=== PATIENT | male | born 1955 | race Caucasian/White ===

== ENCOUNTER → 2020-06-09 10:18 | Outpatient (CLI) | payer BC, SELFPAY ==
--- NOTE | 2020-06-09 10:27 | DI.CT.S_ITS ---
PROCEDURE: CT HEAD/BRAIN WO CON INDICATIONS: Fall on and from ladder, initial encounter TECHNIQUE: Noncontrast 4.5 mm thick angled axial sections acquired from the foramen magnum to the vertex, with coronal and sagittal reformats. For radiation dose reduction, the following was used: automated exposure control, adjustment of mA and/or kV according to patient size. COMPARISON: None. FINDINGS: Image quality: Excellent. CSF spaces: Basal cisterns are patent. No extra-axial fluid collections. Ventricles are normal in size and shape. Brain: No midline shift. No intracranial masses or hemorrhage. Pang-white matter interface is normal. Skull and face: Calvarium and visualized facial bones are intact, without suspicious lesions. Sinuses: Visualized sinuses and mastoids are clear. IMPRESSION: Normal for age, source of current pain after trauma symptoms is not seen. Dictated by: Murtaza Ledesma M.D. on 06/09/2020 at 11:38 Approved by: Murtaza Ledesma M.D. on 06/09/2020 at 11:39
== END ==
PROVIDERS: Referring Provider Psychiatry & Neurology Neurology; Visit Provider Psychiatry & Neurology Neurology
DX: S06.4X9A Epidural hemorrhage with loss of consciousness of unspecified duration, initial encounter (principal); W11.XXXA Fall on and from ladder, initial encounter
CPT/HCPCS: 70450

== ENCOUNTER → 2020-06-21 14:42 | Outpatient (ROUT) | payer BC, SELFPAY ==
[2020-06-21 14:52] LABS: Hematocrit 39.5 % (41-53); Mean Corpuscular HGB Conc 32.8 % (30-36); Mean Corpuscular Hemoglobin 30.4 PG (26-34); Mean Corpuscular Volume 92.7 fL (80-100); Platelet Count 304 X10^3/uL (150-400); Red Blood Cell Count 4.26 X10^6/uL (4.5-5.9); Red Cell Distribution Width 13.4 % (11.6-14.8); White Blood Cell Count 4.7 X10^3/uL (4.5-11.0)
[2020-06-21 15:41] LABS: Alanine Aminotransferase 27 IU/L (<50); Albumin 3.6 g/dL (3.5-5.0); Albumin Globulin Ratio 1.2 (1.0-2.8); Alkaline Phosphatase 129 U/L (38-126); Aspartate Aminotransferase 26 IU/L (17-59); BUN Creatinine Ratio 16.7 (6-22); Bilirubin Total 0.5 mg/dL (0.2-1.3); Blood Urea Nitrogen 14 mg/dL (9-20); Calcium 9.2 mg/dL (8.4-10.2); Carbon Dioxide 30 mmol/L (22-32); Chloride 106 mmol/L (98-107); Cholesterol 217 mg/dL (140-199); Estimated Glomerular Filt Rate > 60.0 mL/min (>60); Globulin 3.1 g/dL (1.7-4.1); Glucose 103 mg/dL (80-110); HDL Cholesterol 33 mg/dL (40-60); HEMOLYSIS < 15 (0-50); LDL Cholesterol Calculated 150 mg/dL (<100); Potassium 4.4 mmol/L (3.4-5.1); Sodium 140 mmol/L (137-145); Total Protein 6.7 g/dL (6.3-8.2); Triglycerides 170 mg/dL (35-150)
== END ==
PROVIDERS: Visit Provider Student in an Organized Health Care Education/Training Program
DX: E78.00 Pure hypercholesterolemia, unspecified (principal)
CPT/HCPCS: 80053; 80061; 85027

== ENCOUNTER → 2020-07-19 14:28 | Outpatient (CLI) | payer BC, SELFPAY ==
--- NOTE | 2020-07-19 | DI.US.S_ITS ---
PROCEDURE: US PERIPH VENOUS LOW EXTREM BI INDICATIONS: CHEST PAIN - RULE OUT DEEP VEIN THROMBOSIS TECHNIQUE: Real-time imaging, as well as color and pulse Doppler interrogation, were performed of the deep veins of both legs from the inguinal ligament to the popliteal fossa. COMPARISON: None. FINDINGS: Right: The common femoral, femoral and popliteal veins are normally compressible, and free of intraluminal thrombus. Color and pulse Doppler demonstrate normal phasic intravascular flow. There is normal augmentation response to distal compression maneuver. Left: The common femoral, femoral and popliteal veins are normally compressible, and free of intraluminal thrombus. Color and pulse Doppler demonstrate normal phasic intravascular flow. There is normal augmentation response to distal compression maneuver. IMPRESSION: No deep venous thrombosis identified within either the left or right lower extremities. Dictated by: Devan Ybarra Myrtle Interpreted: Kade Real MD on 07/19/2020 at 15:49 Approved by: Kade Real M.D. on 07/19/2020 at 17:00
[2020-07-19 14:57] LABS: BUN Creatinine Ratio 22.4 (6-22); Blood Urea Nitrogen 19 mg/dL (9-20); Estimated Glomerular Filt Rate > 60.0 mL/min (>60)
--- NOTE | 2020-07-19 15:52 | DI.CT.S_ITS ---
PROCEDURE: CT ANGIO CHEST INDICATIONS: chest pain R/O DVT TECHNIQUE: After the administration of intravenous contrast, 2 mm thick sections acquired from the pulmonary apices to the posterior costophrenic angles. 3-dimensional maximum intensity projection (MIP) coronal and sagittal reformats were then acquired through the thorax. For radiation dose reduction, the following was used: automated exposure control, adjustment of mA and/or kV according to patient size. COMPARISON: None. FINDINGS: Image quality: Excellent. Pulmonary arteries: Pulmonary arteries are normal in size, and demonstrate no intraluminal filling defects to suggest central pulmonary embolism. Lungs and pleura: Minimal pleural-based nodularity in the extreme right lung base laterally on image 214/5 is likely atelectasis or inflammatory in nature. No suspicious pulmonary nodules. No pleural effusions or pneumothorax. Central and peripheral airways are patent. Mediastinum: Heart size is normal, without pericardial effusion. Symmetric appearing shotty bilateral hilar and mediastinal lymph nodes. No abnormal lymph nodes by size criteria. Thoracic aorta is normal in caliber and enhancement. Esophagus is normal in caliber, with small hiatal hernia. Bones and chest wall: No suspicious bony lesions. Ribs and thoracic spine appear intact throughout. Thyroid gland is unremarkable. No axillary or supraclavicular adenopathy. Abdomen: Visualized upper abdominal solid organs appear normal in the early arterial phase of enhancement. IMPRESSION: 1. No evidence acute pulmonary emboli. 2. Minimal nodularity in the extreme right lung base. This is likely inflammatory or representing minimal atelectasis. 3. No abnormally sized lymph nodes. The mediastinal and hilar adenopathy is likely reactive. However, based on their symmetric appearance, it may potentially represent subtle findings related to sarcoidosis. 4. Small hiatal hernia. Wall Dictated by: Richard Mcgee M.D. on 07/19/2020 at 15:59 Approved by: Richard Mcgee M.D. on 07/19/2020 at 16:04
== END ==
PROVIDERS: Referring Provider Internal Medicine; Visit Provider Internal Medicine
DX: R07.1 Chest pain on breathing (principal); K44.9 Diaphragmatic hernia without obstruction or gangrene
CPT/HCPCS: 36415; 71275; 82565; 84520; 93970; Q9967

== ENCOUNTER → 2020-09-05 15:03 | Outpatient (CLI) | payer BC, SELFPAY ==
--- NOTE | 2020-09-05 15:03 | DI.CT.S_ITS ---
PROCEDURE: CT UE RT WO CON INDICATIONS: Other fractures of lower end of unspecified radius TECHNIQUE: Noncontrast 1 mm axial sections acquired through the carpal bones, with coronal and sagittal reformats. COMPARISON: [facility], CR, XR WRIST 3+ VIEWS RIGHT, 08/29/2020, 16:04. FINDINGS: Image quality: Diagnostic. Beam hardening artifacts from distal radial fixation hardware is seen. Bones: As seen on previous radiograph, there is internal fixation of distal radial shaft with comminuted intra-articular fracture of distal radius. There is partial bony union throughout distal radial fracture sites. Persistent up to 1 millimeter diastasis involving in posterior distal radius is seen with corticated margin is seen. There is up to 2.4 millimeter diastasis involving distal radial cortex adjacent to radiocarpal joint space. Widening of scapholunate interval is seen measures up to 4 millimeters in distance. No other fracture or dislocation is seen. Osteoarthritic changes are noted along radial aspect of right wrist. No CT evidence of hardware loosening or failure. No suspicious intraosseous lesion. Soft tissues: There is no gross forearm or wrist soft tissue abnormality. No significant joint effusion. No full-thickness muscle or tendon rupture. No abnormal soft tissue calcifications. IMPRESSION: 1. Prior internal fixation of distal radius with anatomic wrist alignment. Comminuted intra-articular fracture of distal radius is seen with partial bony union at fracture sites and up to 2.4 mm diastasis involving distal radial cortex adjacent to radiocarpal joint and up to 1 millimeter diastasis in posterior cortex of distal radius. No new fracture or dislocation is seen. No CT evidence of hardware loosening or failure. 2. No gross wrist soft tissue abnormality. 3. Widening of scapholunate interval suggestive of scapholunate ligament tear. Dictated by: Crescencio Beaver M.D. on 09/05/2020 at 16:58 Approved by: Crescencio Beaver M.D. on 09/05/2020 at 17:05
== END ==
PROVIDERS: PCP Orthopaedic Surgery; Referring Provider Orthopaedic Surgery; Visit Provider Orthopaedic Surgery
DX: S52.571G Other intraarticular fracture of lower end of right radius, subsequent encounter for closed fracture with delayed healing (principal); X58.XXXD Exposure to other specified factors, subsequent encounter
CPT/HCPCS: 73200

== ENCOUNTER → 2020-09-14 13:30 | Outpatient (CLI) | payer BC, SELFPAY ==
[2020-09-14 15:54] LABS: Carbon Dioxide 27 mmol/L (22-32); Chloride 103 mmol/L (98-107); HEMOLYSIS < 15 (0-50); Potassium 4.6 mmol/L (3.4-5.1); Sodium 137 mmol/L (137-145)
== END ==
PROVIDERS: PCP Orthopaedic Surgery; Referring Provider Student in an Organized Health Care Education/Training Program; Visit Provider Student in an Organized Health Care Education/Training Program
DX: G47.62 Sleep related leg cramps (principal)
CPT/HCPCS: 36415; 80051

== ENCOUNTER → 2020-09-19 12:01 | Outpatient (CLI) | payer BC, SELFPAY ==
--- NOTE | 2020-09-19 12:03 | DI.US.S_ITS ---
PROCEDURE: US PERIPH VENOUS LOW EXTREM LT INDICATIONS: Other specified soft tissue disorders TECHNIQUE: Real-time imaging, as well as color and pulse Doppler interrogation, were performed of the lower extremity deep veins from the inguinal ligament to the popliteal fossa. COMPARISON: None. FINDINGS: Distal deep venous thrombosis can be seen involving the distal popliteal vein and into the tibioperoneal trunk. The thrombus extends through the entire calf. The peroneal vein is patent at the level of the ankle. The posterior tibial veins are also patent. No proximal deep venous thrombosis can be seen. There is a nonvascular superficial mass seen involving the posterior fossa and the calf that measures 3.6 x 0.6 x 2.1 cm. IMPRESSION: Distal deep venous thrombosis is seen involving the distal popliteal vein and the tibioperoneal trunk. No proximal deep venous thrombosis can be seen. There is also an apparent soft tissue lipoma seen. Note: Findings relayed to Estelle Pillai PA-C via office staff, [place], at 12:15 p.m. [place] time on September 19, 2020. Dictated by: Rigo Bautista M.D. on 09/19/2020 at 12:10 Approved by: Rigo Bautista M.D. on 09/19/2020 at 12:17
== END ==
PROVIDERS: PCP Student in an Organized Health Care Education/Training Program; Referring Provider Student in an Organized Health Care Education/Training Program; Visit Provider Student in an Organized Health Care Education/Training Program
DX: I82.432 Acute embolism and thrombosis of left popliteal vein (principal); I82.442 Acute embolism and thrombosis of left tibial vein; I82.452 Acute embolism and thrombosis of left peroneal vein; M79.89 Other specified soft tissue disorders
CPT/HCPCS: 93971

== ENCOUNTER 2021-01-26 16:35 | Emergency (ER) | payer BC, SELFPAY ==
[2021-01-26 16:43] VITALS: BP 120/83; PULSE 78; RESP 18; TEMP 36.2; O2SAT 99; BMI 27.7
--- NOTE | 2021-01-26 19:30 | DI.US.S_ITS ---
PROCEDURE: US [facility] VENOUS LOW EXTREM LT INDICATIONS: RE-EVALUATE DVT TECHNIQUE: Real-time imaging, as well as color and pulse Doppler interrogation, were performed of the lower extremity deep veins from the inguinal ligament to the popliteal fossa. COMPARISON: [facility], , [facility] VENOUS LOW EXTREM LT, 09/19/2020, 11:19. FINDINGS: The common femoral, and femoral veins are normally compressible, and free of intraluminal thrombus. Color and pulse Doppler demonstrate normal phasic intraluminal flow. There is normal augmentation response to distal compression maneuver. At the tibioperoneal trunk, there is expansile and occlusive thrombus. This segment of vein is incompressible. There is no flow in the peroneal vein more distally. Proximal portion of the thrombus extends into the distal most aspect of the popliteal vein. IMPRESSION: 1. No significant change in the extent of the thrombosed calf vein. The proximal most extent is the distal popliteal vein, stable compared to the prior study. Dictated by: Seema Suarez M.D. on 01/26/2021 at 21:13 Approved by: Seema Suarez M.D. on 01/26/2021 at 21:17
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
[2021-01-26 20:31] VITALS: BP 130/84; PULSE 74; O2SAT 98
== END 2021-01-26 20:32 | disposition home or self-care (01) ==
PROVIDERS: Emergency Provider Nurse Practitioner Critical Care Medicine; PCP Student in an Organized Health Care Education/Training Program
DX: I82.532 Chronic embolism and thrombosis of left popliteal vein (principal)
CPT/HCPCS: 93971; 99283

== ENCOUNTER → 2021-02-17 13:50 | Outpatient (CLI) | payer BC, SELFPAY ==
--- NOTE | 2021-02-17 | DI.CT.S_ITS ---
PROCEDURE: CT UE RT WO CON INDICATIONS: Fracture of unspecified carpal bone, right wrist, initial en TECHNIQUE: Noncontrast 1 mm axial sections acquired through the carpal bones, with coronal and sagittal reformats. COMPARISON: [facility], CT, CT UE RT WO CON, 09/05/2020, 15:08. FINDINGS: Image quality: Excellent. Bones: Patient is status post prior ORIF of distal radius with significant beam hardening artifacts from surgical hardware. No gross hardware loosening or failure is seen. Compared to previous study, there is interval healing at patient's known comminuted intra-articular distal radial radial fracture sites with near complete bony union. No new fracture or dislocation is seen. No evidence of nonunion. Slight widening of scapholunate interval is noted concerning for scapholunate ligament injury. No suspicious intraosseous lesion is seen. Osteoarthritic changes throughout wrist joints are noted more prominent at radiocarpal joint and scaphoid trapezial joint. Soft tissues: There is no gross wrist soft tissue abnormality. No full-thickness extensor or flexor tendon rupture. No significant joint effusion or intra-articular loose body. No abnormal soft tissue calcification is seen. IMPRESSION: 1. Nearly healed comminuted distal radial intra-articular fracture as above. No new fracture or dislocation. No evidence of hardware loosening or failure. No suspicious bony lesion. Osteoarthritic changes are noted in wrist joints. 2. Widened scapholunate interval concerning for injury to scapholunate ligament. No full-thickness wrist tendon rupture. No abnormal soft tissue calcifications. No significant joint effusion. Dictated by: Crescencio Beaver M.D. on 02/17/2021 at 14:19 Approved by: Crescencio Beaver M.D. on 02/17/2021 at 14:34
== END ==
PROVIDERS: PCP Student in an Organized Health Care Education/Training Program; Referring Provider Orthopaedic Surgery; Visit Provider Orthopaedic Surgery
DX: S52.571D Other intraarticular fracture of lower end of right radius, subsequent encounter for closed fracture with routine healing (principal); X58.XXXD Exposure to other specified factors, subsequent encounter
CPT/HCPCS: 73200

== ENCOUNTER → 2021-07-12 08:27 | Outpatient (CLI) | payer BC, SELFPAY ==
--- NOTE | 2021-07-12 | DI.RAD.S_ITS ---
PROCEDURE: [place] WRIST INJECTION MR/CT RT INDICATIONS: SCAPHOLUNATE JOINT DIASTASIS COMPARISON: [facility] [place], CR, XR WRIST 3+ VIEWS RIGHT, 07/03/2021, 14:18. [facility], , MR WRIST RT W CON, 07/12/2021, 8:39. TECHNIQUE: After informed consent had been obtained, the wrist was examined fluoroscopically, and a site chosen for injection of the radiocarpal compartment from a dorsal approach. Skin was prepped and draped in a sterile fashion and 1% lidocaine infiltrated from the skin down to the articular surface. A hypodermic needle was then introduced into the articular space and a modest amount of contrast medium was instilled confirming intra-articular needle tip placement. This was followed by approximately 4 mL of a dilute gadolinium solution. Needle was removed and dressing was applied. The patient experienced no complications throughout the procedure and left the fluoroscopic suite in no apparent distress. FINDINGS: A single fluoroscopic spot image demonstrates injected iodinated contrast around the joint space and the lateral tendon sheaths. Please note, it is unclear whether there was successful intra-articular injection on fluoroscopic view. Follow-up MRI will be performed immediately following this exam. IMPRESSION: Successful fluoroscopic-guided administration of dilute Gadolinium solution for wrist MR arthrogram. Dictated by: Abeba Duncan M.D. on 07/12/2021 at 9:36 Approved by: Abeba Duncan M.D. on 07/12/2021 at 9:45
--- NOTE | 2021-07-12 | DI.MRI.S_ITS ---
PROCEDURE: MR WRIST RT W CON INDICATIONS: SCAPHOLUNATE JOINT DIASTASIS TECHNIQUE: After the administration of 3-4 mL of dilute intra-articular Gadolinium contrast into the radiocarpal compartment, coronal T1 spin echo with fat saturation and T2 fast spin echo with fat saturation, axial T1 spin echo and T2 fast spin echo with fat saturation, sagittal T1 spin echo with and without fat saturation through the wrist. COMPARISON: [facility], CT, CT UE RT WO CON, 09/05/2020, 15:08. [facility], CT, CT UE RT WO CON, 02/17/2021, 14:11. [facility], CR, XR WRIST 3+ VIEWS RIGHT, 07/03/2021, 14:18. [facility], RF, [place] WRIST INJECTION MR/CT RT, 07/12/2021, 8:59. FINDINGS: Image quality: Extra-articular injection of T1 contrast material is noted. Diagnostic information is still obtained. Bones and cartilage: Abnormal signal is seen in the distal radius related to the previously seen healed distal radial fracture with removed hardware and probable bone graft donor site. There continues to be a gap along the distal radial articular surface measuring up to 2 mm, as seen on sagittal images. Mild osseous edema is seen in the scaphoid with transverse linear fracture line at the scaphoid waist without displacement. No definite osseous bridging is seen. Additional fracture line is seen within the distal pole of the scaphoid extending to the scaphoid trapezial articular surface without displacement. No signs of scaphoid osteonecrosis. Mild osseous edema in the proximal scaphoid is most likely related to degenerative changes and cartilage loss at the radioscaphoid articulation. Osseous edema and cystic changes are seen within the lunate, consistent with severe degenerative changes at the radiolunate articulation with associated full-thickness cartilage loss. The ulnar head is noted to be abutting the proximal lunate with associated cystic changes and subchondral edema. Mild cystic changes are seen in the triquetrum. Full-thickness cartilage loss is seen in the 1st carpometacarpal joint and there is multifocal high-grade cartilage loss in the triscaphe joint. Small midcarpal and radiocarpal effusions are present. Carpal ligaments: Widening of the scapholunate interval is seen measuring up to 3 mm. There is complete tearing of the volar and likely the membranous portions of the scapholunate ligament. The dorsal scapholunate ligament fibers may remain in continuity. No triquetral ligament is grossly intact. On sagittal images, the pisohamate ligament appears intact. Triangular fibrocartilage complex: There is complete tearing of the central triangle fibrocartilage disc. The distal ulna abuts the lunate through the full-thickness defect. A small distal radioulnar joint effusion is present. Tendons and soft tissues: The carpal tunnel structures appear normal, including the median nerve. The ulnar nerve appears normal within Guyon's canal. There is partial tearing of the extensor carpi ulnaris tendon at the level of the ulnar groove as well as mild volar subluxation that is suggestive of an injury to the tendon subsheath. Surrounding fluid is seen within the tendon sheath, consistent with tenosynovitis. T1-hyperintense fluid is seen within the 2nd and 3rd extensor compartments, consistent with extravasation during the arthrogram injection. IMPRESSION: 1. Postsurgical changes from fracture fixation at the distal radius with subsequent hardware removal. The distal radial fracture appears healed. Bone graft donor site is also noted in the distal radius. 2. Subtle nondisplaced linear fracture lines in the waist of the scaphoid and in the proximal pole without definite osseous bridging. No signs of proximal pole osteonecrosis. 3. Complete tearing of the volar and membranous portions of the scapholunate ligament with widening of the scapholunate interval. Some of the dorsal ligamentous fibers may remain intact. 4. Complete tearing of the central triangle fibrocartilage disc. 5. Partial longitudinal tearing of the extensor carpi ulnaris tendon with associated tenosynovitis and mild volar subluxation, suggesting injury to the subsheath. 6. Severe radiocarpal degenerative changes. Moderate 1st carpometacarpal and triscaphe osteoarthrosis. Small joint effusions are seen throughout the wrist. Dictated by: Arpit Méndez M.D. on 07/12/2021 at 10:36 Approved by: Arpit Méndez M.D. on 07/12/2021 at 10:56
== END ==
PROVIDERS: PCP Student in an Organized Health Care Education/Training Program; Referring Provider Orthopaedic Surgery; Visit Provider Orthopaedic Surgery
DX: S63.094D Other dislocation of right wrist and hand, subsequent encounter (principal); S63.591A Other specified sprain of right wrist, initial encounter; S66.811A Strain of other specified muscles, fascia and tendons at wrist and hand level, right hand, initial encounter; M18.11 Unilateral primary osteoarthritis of first carpometacarpal joint, right hand; M19.031 Primary osteoarthritis, right wrist; M65.831 Other synovitis and tenosynovitis, right forearm
CPT/HCPCS: 20605; 73222; 77002

== ENCOUNTER → 2021-07-31 09:15 | Outpatient (CLI) | payer BC, SELFPAY ==
[2021-07-31 12:11] LABS: COVID19 -Nasal RAPID Negative (Negative)
== END ==
PROVIDERS: PCP Student in an Organized Health Care Education/Training Program; Visit Provider Surgery
DX: Z01.812 Encounter for preprocedural laboratory examination (principal); Z20.822 Contact with and (suspected) exposure to COVID-19
CPT/HCPCS: 87635

== ENCOUNTER 2021-08-01 07:57 | Day surgery (SDC) | payer BC, SELFPAY ==
[2021-08-01] VITALS (8 sets, daily range): BP systolic 89–118; BP diastolic 40–76; PULSE 65–85; RESP 12–18; TEMP 36.1–36.9; O2SAT 90–98; BMI 27.7
--- NOTE | 2021-08-01 08:42 | PM.HP.1 ---
History of Present Illness History of Present Illness Date Patient Seen: 08/01/21 Time Patient Seen: 08:43 Chief complaint: SDC Narrative: The patient presents for colorectal screening. He has a personal history of colonic polyps. Last colonoscopy was 3-5 years ago in significant for polyps. No personal or family history of colon cancer. On further history denies any recent gastrointestinal symptoms. No nausea, vomiting, abdominal pain, loss of appetite, unexplained weight loss, change in bowel habits, diarrhea, constipation, melena, hematochezia, or bright red blood per rectum. Patient History Medical History Acid reflux Hypercholesteremia Sleep apnea in adult Surgical History H/O wrist surgery History of right hip replacement Family & Social History Family History Father Heart disease Mother Pancreatic cancer Breast cancer Unknown Breast cancer Brother No problems noted. Tobacco & Substance use: Smoking Status Former smoker alcohol intake frequency holiday/special occasion Meds Home Medications and Allergies Home Medications Medication Instructions Recorded Confirmed Type acetaminophen 325 mg tablet 650 mg PO PRN PRN 11/07/20 07/31/21 History (Tylenol) apixaban 5 mg tablet (Eliquis) 5 mg PO BID #60 tab 11/07/20 07/31/21 Rx omeprazole 20 mg capsule,delayed 20 mg PO DAILY 08/01/21 08/01/21 History release Allergies Allergy/AdvReac Type Severity Reaction Status Date / Time No Known Drug Allergies Allergy Verified 08/01/21 08:33 Exam Narrative Exam Narrative: GENERAL: Adult male in no apparent distress HEENT: No scleral icterus CV: Regular rate, no peripheral edema LUNGS: No increased work of breathing. Patient speaks in full sentences without oxygen support. ABDOMEN: Soft, non-tender, non-distended NEURO: Nonfocal, normal strength throughout, normal gait. SKIN: Warm and dry Assessment & Plan Assessment & Plan narrative: The patient requires colorectal screening and colonoscopy is recommended. Technical details were discussed. Risks, benefits, alternatives explained. Risks including but not limited to myocardial infarction, aspiration, bleeding, pain, missed lesion, incomplete examination, need for further radiographic studies, colonic perforation, and need for major abdominal surgery were discussed. All questions were answered to their satisfaction, and they are in agreement with this plan. Time Spent With Patient Critical Care time: I spent a total of [] minutes of critical care time on this patient's care today; this time is exclusive of procedural time.
[2021-08-01] MEDS: fentaNYL 250 MCG/5 ML INJ IV (08:52)
[2021-08-01] MEDS: MIDAZOLAM 5 MG/5 ML VIAL 9 MG IV (08:52)
--- NOTE | 2021-08-01 09:21 | PM.OP.COLON ---
Operative Date/Time/Diagnoses Date of procedure: 08/01/21 Time of procedure: 09:21 Pre-op diagnosis: personal history of colonic polyps Post-op diagnosis: same Procedure & Clinicians Study performed: Colonoscopy Same procedure as scheduled: Yes Indications: Personal history colonic polyps Surgeon: Jeffrey Verduzco Procedure Notes Procedure in detail: Medications: Conscious sedation using 9mg IV midazolam and 250mcg IV of fentanyl The history and physical was performed/updated and the patient is ASA class is 2. The procedure was discussed in detail with the patient. Potential risks complications including infection, bleeding, missed diagnosis, perforation, need for surgery, and were explained. Their questions were answered and informed consent was obtained. Patient was brought to the procedure room and placed standard monitoring equipment. The patient's vital signs were monitored continuously throughout the entire procedure. Prior to starting time-out was performed. The patient was placed in the left lateral recumbent position. Procedural sedation was administered. Examination began with a thorough inspection of the perianal area there was no evidence of fissures, fistulae, external hemorrhoids or cutaneous malignancy. The colonoscopy scope was then placed into the anal canal and was advanced to the cecum, which was identified by the ileocecal valve, the appendiceal orifice and the confluence of the taenia. The scope was then slowly withdrawn examining colon thoroughly in all directions, irrigating it of any residual stool. FINDINGS 1. No masses or polyps. 2. Sigmoid diverticulosis 3. Internal hemorrhoids The patient tolerated the procedure well. They will be discharged once criteria are met. The prep was of good/excellent quality. The withdrawl time was 10 minutes. The sedation time was 28 minutes. Specimen(s): none sent Complications: none Impression: Normal colonoscopy Post-procedure Recommendations: Colonoscopy in 5 years Disposition: same day surgery
[2021-08-01] MEDS: LACTATED RINGERS 1,000 ML 200 ML IV (10:17)
== END 2021-08-01 10:25 | disposition home or self-care (01) ==
PROVIDERS: PCP Student in an Organized Health Care Education/Training Program; Referring Provider Surgery; Visit Provider Surgery
PROC: 0DJD8ZZ Inspection of Lower Intestinal Tract, Via Natural or Artificial Opening Endoscopic (ICD-10-PCS; CPT 45378; principal; 2021-08-01 09:00)
DX: Z12.11 Encounter for screening for malignant neoplasm of colon (principal); Z86.010 Personal history of colon polyps; G47.30 Sleep apnea, unspecified; K57.30 Diverticulosis of large intestine without perforation or abscess without bleeding; K64.8 Other hemorrhoids
CPT/HCPCS: 45378; 99152; 99153; J2250; J3010

== ENCOUNTER 2021-09-06 15:34 | Emergency (ER) | payer OTHER, BC, SELFPAY ==
[2021-09-06 15:48] VITALS: BP 128/75; PULSE 70; RESP 16; TEMP 36.7; O2SAT 97
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
[2021-09-06 19:00] VITALS: BP 124/74; PULSE 65; RESP 16; O2SAT 99
== END 2021-09-06 19:00 | disposition home or self-care (01) ==
PROVIDERS: Emergency Provider Emergency Medicine; PCP Student in an Organized Health Care Education/Training Program; Referring Provider Family Medicine
DX: S16.1XXA Strain of muscle, fascia and tendon at neck level, initial encounter (principal); M54.6 Pain in thoracic spine; Z79.01 Long term (current) use of anticoagulants; V89.2XXA Person injured in unspecified motor-vehicle accident, traffic, initial encounter
CPT/HCPCS: 70450; 72125; 99281; 99284

== ENCOUNTER → 2021-10-31 07:16 | Outpatient (CLI) | payer BC, SELFPAY ==
[2021-10-31 08:09] LABS: COVID19 -Nasal RAPID Negative (Negative)
== END ==
PROVIDERS: PCP Student in an Organized Health Care Education/Training Program
DX: Z01.812 Encounter for preprocedural laboratory examination (principal); Z20.822 Contact with and (suspected) exposure to COVID-19
CPT/HCPCS: 87635; C9803

== ENCOUNTER → 2022-08-20 08:44 | Outpatient (CLI) | payer MEDICARE, BC, SELFPAY ==
[2022-08-20 09:27] LABS: Add Manual Diff / Slide Review NO; Basophils Absolute Auto 100 /uL (0-100); Basophils Percent Auto 1.2 % (0-2); Eosinophils Absolute Auto 200 /uL (0-450); Eosinophils Percent Auto 4.6 % (2-4); Hemoglobin 14.6 g/dL (13.5-17.5); Lymphocytes Absolute Auto 1200 /uL (1100-4500); Lymphocytes Percent Auto 22.9 % (25-40); Mean Corpuscular Hemoglobin 30.5 PG (26-34); Mean Corpuscular Volume 89.8 fL (80-100); Monocytes Absolute Auto 400 /uL (0-900); Monocytes Percent Auto 8.8 % (3-14); Neutrophils Absolute Auto 3200 /uL (1500-7000); Neutrophils Percent Auto 62.5 % (50-75); Platelet Count 224 X10^3/uL (150-400); Red Blood Cell Count 4.78 X10^6/uL (4.5-5.9); Red Cell Distribution Width 13.7 % (11.6-14.8); White Blood Cell Count 5.1 X10^3/uL (4.5-11.0)
[2022-08-20 09:44] LABS: Alanine Aminotransferase 19 IU/L (<50); Albumin 3.8 g/dL (3.5-5.0); Alkaline Phosphatase 81 U/L (38-126); Aspartate Aminotransferase 24 IU/L (17-59); BUN Creatinine Ratio 14.6 (6-22); Bilirubin Total 0.9 mg/dL (0.2-1.3); Blood Urea Nitrogen 12 mg/dL (9-20); Calcium 8.5 mg/dL (8.4-10.2); Carbon Dioxide 26 mmol/L (22-32); Chloride 104 mmol/L (98-107); Cholesterol 241 mg/dL (140-199); Estimated Glomerular Filt Rate > 60 mL/min (>60); Globulin 3.7 g/dL (1.7-4.1); Glucose 104 mg/dL (80-110); HDL Cholesterol 33 mg/dL (40-60); HEMOLYSIS < 15 (0-50); LDL Cholesterol Calculated 176 mg/dL (<100); Potassium 4.1 mmol/L (3.4-5.1); Sodium 136 mmol/L (137-145); Total Protein 7.5 g/dL (6.3-8.2); Triglycerides 158 mg/dL (35-150)
[2022-08-20 10:14] LABS: Prostate Specific Antigen Scrn 1.05 ng/mL (0.1-4.0)
== END ==
PROVIDERS: PCP Family Medicine; Referring Provider Family Medicine; Visit Provider Family Medicine
DX: D12.6 Benign neoplasm of colon, unspecified (principal); Z12.5 Encounter for screening for malignant neoplasm of prostate; G47.33 Obstructive sleep apnea (adult) (pediatric); I82.A22 Chronic embolism and thrombosis of left axillary vein; K21.9 Gastro-esophageal reflux disease without esophagitis
CPT/HCPCS: 36415; 80053; 80061; 84443; 85025; G0103

== ENCOUNTER → 2023-07-17 14:43 | Outpatient (CLI) | payer OTHER, SELFPAY ==
--- NOTE | 2023-07-17 14:44 | DI.US.S_ITS ---
PROCEDURE: US PERIP VENOUS LOW EXTREM LT INDICATIONS: Please evaluate for LLE DVT TECHNIQUE: Real-time imaging, as well as color and pulse Doppler interrogation, were performed of the lower extremity deep veins from the inguinal ligament to the popliteal fossa, with documentation of the visualized calf veins. COMPARISON: [facility], [facility] VENOUS LOW EXTREM LT, 01/26/2021, 20:05. FINDINGS: The common femoral, femoral, popliteal, and the visualized calf veins are normally compressible, and free of intraluminal thrombus. Color and pulse Doppler demonstrate normal phasic intraluminal flow. There is normal augmentation response to distal compression maneuver. IMPRESSION: No findings of lower extremity deep venous thrombosis. Dictated by: Rigo Bautista M.D. on 07/17/2023 at 15:16 Approved by: Rigo Bautista M.D. on 07/17/2023 at 15:17
[2023-07-17 17:19] LABS: Add Manual Diff / Slide Review NO; Basophils Absolute Auto 100 /uL (0-100); Basophils Percent Auto 1.1 % (0-2); Eosinophils Absolute Auto 300 /uL (0-450); Eosinophils Percent Auto 4.1 % (2-4); Hematocrit 38.3 % (41-53); Hemoglobin 12.9 g/dL (13.5-17.5); Lymphocytes Absolute Auto 1400 /uL (1100-4500); Lymphocytes Percent Auto 22.9 % (25-40); Mean Corpuscular HGB Conc 33.8 % (30-36); Mean Corpuscular Hemoglobin 31.1 PG (26-34); Monocytes Absolute Auto 600 /uL (0-900); Monocytes Percent Auto 9.3 % (3-14); Neutrophils Absolute Auto 3900 /uL (1500-7000); Neutrophils Percent Auto 62.6 % (50-75); Platelet Count 215 X10^3/uL (150-400); Red Blood Cell Count 4.16 X10^6/uL (4.5-5.9); Red Cell Distribution Width 13.7 % (11.6-14.8); White Blood Cell Count 6.3 X10^3/uL (4.5-11.0)
[2023-07-17 17:21] LABS: Prothrombin Time 11.9 SECONDS (9.4-12.5)
[2023-07-17 17:23] LABS: D Dimer 690 ng/ml (<500)
[2023-07-17 17:27] LABS: Alanine Aminotransferase 15 IU/L (<50); Albumin 3.5 g/dL (3.5-5.0); Alkaline Phosphatase 82 U/L (38-126); Aspartate Aminotransferase 20 IU/L (17-59); BUN Creatinine Ratio 18.8 (6-22); Bilirubin Total 0.8 mg/dL (0.2-1.3); Blood Urea Nitrogen 18 mg/dL (9-20); Calcium 8.9 mg/dL (8.4-10.2); Carbon Dioxide 31 mmol/L (22-32); Chloride 107 mmol/L (98-107); Estimated Glomerular Filt Rate > 60 mL/min (>60); Globulin 3.4 g/dL (1.7-4.1); Glucose 99 mg/dL (80-110); HEMOLYSIS < 15 (0-50); Potassium 4.2 mmol/L (3.4-5.1); Sodium 138 mmol/L (137-145); Total Protein 6.9 g/dL (6.3-8.2)
== END ==
PROVIDERS: PCP Family Medicine; Referring Provider Nurse Practitioner Family; Visit Provider Nurse Practitioner Family
DX: Z86.718 Personal history of other venous thrombosis and embolism (principal); I82.532 Chronic embolism and thrombosis of left popliteal vein
CPT/HCPCS: 36415; 80053; 85025; 85379; 85610; 93971

== ENCOUNTER → 2024-06-11 07:53 | Outpatient (CLI) | payer OTHER, SELFPAY ==
[2024-06-11 08:51] LABS: Influenza A - CEPHEID Flu A NEGATIVE (NEGATIVE); Influenza B - CEPHEID Flu B NEGATIVE (NEGATIVE); Respiratory Syncytial Virus POSITIVE (Negative)
[2024-06-11 08:52] LABS: COVID-19 CEPHEID 4-PLEX PCR Negative (Negative)
== END ==
PROVIDERS: PCP Family Medicine; Visit Provider Physician Assistant Medical
DX: R05.1 Acute cough (principal)
CPT/HCPCS: 0241U

== ENCOUNTER 2024-11-17 08:34 | Emergency (ER) | payer OTHER, SELFPAY ==
[2024-11-17] VITALS (8 sets, daily range): BP systolic 110–125; BP diastolic 52–78; PULSE 79–86; RESP 16–23; TEMP 36.5; O2SAT 95–99; BMI 27.6
--- NOTE | 2024-11-17 08:38 | DI.RAD.S_ITS ---
PROCEDURE: XR CHEST 1V INDICATIONS: Chest Pain TECHNIQUE: One view of the chest was acquired. COMPARISON: None. FINDINGS: Surgical changes and devices: None. Lungs and pleura: Lungs are clear. No pleural effusions or pneumothorax. Mediastinum: Mediastinal contours appear normal. Heart size is normal. Aortic arch is calcified indicating atherosclerosis. Bones and chest wall: No suspicious bony lesions. Overlying soft tissues appear unremarkable. IMPRESSION: No acute cardiopulmonary abnormality is seen. Approved by: Sylwia Green M.D.,Ph.D. on 11/17/2024 at 9:16
--- NOTE | 2024-11-17 08:42 | EKG_ITS ---
[address] [address] Test Date: 2024-11-17 Pat Name: Maninder Crane Department: Room: Gender: Male Administrative Officer: TIMOTHY : 1955 Requested By: Order Number: [id number] Reading MD: Jacky Morejon Measurements Intervals [place] Rate: 81 P: 40 [place]: 164 QRS: -49 QRSD: 86 T: 26 QT: 356 QTc: 413 Interpretive Statements Normal sinus rhythm Left anterior fascicular block Electronically Signed On 11-21-2024 7:57:40 PDT by Jacky Morejon
[2024-11-17] MEDS: ASPIRIN 81 MG CHEW TAB 324 MG PO (09:00)
[2024-11-17 09:10] LABS: INR 1.1 (0.9-1.3); Prothrombin Time 12.3 SECONDS (9.4-12.5)
[2024-11-17 09:12] LABS: Add Manual Diff / Slide Review NO; Hematocrit 43.8 % (41-53); Hemoglobin 15.1 g/dL (13.5-17.5); Lymphocytes Absolute Auto 1100 /uL (1100-4500); Mean Corpuscular HGB Conc 34.5 % (30-36); Mean Corpuscular Hemoglobin 31.9 PG (26-34); Mean Corpuscular Volume 92.4 fL (80-100); Platelet Count 259 X10^3/uL (150-400)
[2024-11-17 09:13] LABS: PTT Partial Thromboplastin Tim 30 SECONDS (25.1-36.5)
[2024-11-17 09:15] LABS: Alanine Aminotransferase 19 IU/L (<50); Albumin 4.2 g/dL (3.5-5.0); Albumin Globulin Ratio 1.0 (1.0-2.8); Alkaline Phosphatase 108 U/L (38-126); Blood Urea Nitrogen 16 mg/dL (9-20); Calcium 8.8 mg/dL (8.4-10.2); Carbon Dioxide 27 mmol/L (22-32); Chloride 102 mmol/L (98-107); Creatine Kinase 78 U/L (55-170); Estimated Glomerular Filt Rate > 60 mL/min (>60); Globulin 4.1 g/dL (1.7-4.1); Glucose 112 mg/dL (70-99); HEMOLYSIS < 15 (0-50); Lipase 52 U/L (23-300); Magnesium 2.1 mg/dL (1.6-2.3); Potassium 4.2 mmol/L (3.4-5.1); Sodium 138 mmol/L (137-145); Total Protein 8.3 g/dL (6.3-8.2)
[2024-11-17 09:26] LABS: NT-proBNP (BNP-Adult 18+) 619 pg/mL (<125); Troponin I < 0.012 ng/mL (0.01-0.034)
--- NOTE | 2024-11-17 11:51 | ED.CHESTPAIN ---
HPI - Chest Pain General Chief Complaint: Chest Pain Stated Complaint: Tightness in chest sent from [facility] Time Seen by Provider: 11/17/24 11:35 Source: patient Mode of arrival: Ambulatory Limitations: no limitations History of Present Illness HPI narrative: This is a 69-year-old male history of elevated cholesterol gastroesophageal reflux disease and provoked DVT presenting with chest tightness for 1 week. Patient reports a vague sense of chest tightness for about 1 week, not worsened by exertion no change with eating not short of breath. Says he also feels fatigued and had some sweats last night. He has not had any vomiting abdominal pain nausea or vomiting. He does not use alcohol to excess. In terms of cardiac risk factors there is a family history of coronary disease he has elevated cholesterol but is not compliant with his statin, nonsmoker no diabetes and no hypertension. DVT was about 4 years ago was provoked and is no longer on anticoagulation. Related Data Home Medications ?Medication ?Instructions ?Recorded ?Confirmed acetaminophen 325 mg tablet 650 mg PO PRN PRN Pain (Scale 11/07/20 11/17/24 (Tylenol) Score 1-3) aspirin 81 mg tablet,delayed 81 mg PO DAILY 07/17/23 11/17/24 release (Adult Aspirin Regimen) Previous Rx's ?Medication ?Instructions ?Recorded lansoprazole 15 mg capsule,delayed 15 mg PO DAILY #90 caps 03/18/24 release pravastatin 20 mg tablet 20 mg PO BEDTIME #90 tabs 03/30/24 Allergies Allergy/AdvReac Type Severity Reaction Status Date / Time No Known Drug Allergies Allergy Verified 11/17/24 08:42 Patient History Medical History (Updated 11/17/24 @ 11:51 by Andrez Degroot MD) Cellulitis Hyperlipidemia Medicare annual wellness visit, initial History of colon polyps Acid reflux Hypercholesteremia Sleep apnea in adult Surgical History History of right hip replacement H/O wrist surgery Family History Father Heart disease Mother Pancreatic cancer Breast cancer Unknown Breast cancer Brother No problems noted. Social History (Updated 09/28/24 @ 08:58 by Kamini Wills MA) marital status: household members: spouse Smoking Status: Former smoker alcohol intake: never Smoking Status: Former smoker alcohol intake frequency: holidays/special occasions only Exam Initial Vital Signs Initial Vital Signs: Vital Signs Temperature 97.7 F 11/17/24 08:42 Pulse Rate 86 11/17/24 08:42 Respiratory Rate 16 11/17/24 08:42 Blood Pressure 123/78 11/17/24 08:42 Pulse Oximetry 99 11/17/24 08:42 Oxygen Delivery Method Room Air 11/17/24 08:42 vital signs are reviewed Const General: cooperative and No acute distress HENMT Head: normocephalic and atraumatic Face and sinus: face symmetric Mouth: moist mucous membranes Eyes Pupils: PERRL EOM: EOM intact bilaterally Neck Neck: normal visual inspection, supple and No JVD Chest Chest: normal inspection of the chest Resp Effort & Inspection: normal respiratory effort and able to speak in complete sentences Auscultation: clear to auscultation bilaterally Cardio Rate: regular rate Rhythm: regular rhythm Heart Sounds: no murmurs Other: Normal heart rate GI Inspection: normal to inspection Palpation: soft Auscultation: normal bowel sounds Back/Spine/Pelvis Back: normal to inspection Skin General: no rashes or lesions noted and warm Neuro General: patient alert, patient oriented x3 and moves all extremities Speech: speech normal Extrem General: full ROM Psych Appearance: grossly normal Course Orders Ordered: ED Orders 11/17/24 11:15 Troponin I Stat Discontinued Medications Aspirin (Aspirin 81 Mg Chew Tab) 324 mg PO NOW ONE Stop: 11/17/24 08:39 Last Admin: 11/17/24 09:00 Dose: 324 mg Documented By: NORMA Vital Signs Vital signs: Vital Signs - 8 hr 11/17/24 11:00 11/17/24 11:01 11/17/24 11:01 Pulse Rate 79 81 Respiratory Rate 20 21 Blood Pressure 110/52 L Pulse Oximetry 97 98 11/17/24 11:30 11/17/24 11:30 Pulse Rate 79 Respiratory Rate 18 Blood Pressure 114/72 Pulse Oximetry 97 MDM - Chest Pain Lab Data Lab results narrative: Labs are reviewed. He has an elevated bilirubin on CMP, this is an isolated finding and not associated with the abdominal pain or abdominal tenderness on my own evaluated further today. Troponin is normal. ProBNP is elevated, this is not associated with any clinical findings to suggest heart failure 11/17/24 08:50 11/17/24 08:50 Labs: Lab Results 11/17/24 11/17/24 Range/Units 08:50 11:15 WBC 7.7 (4.5-11.0) X10^3/uL RBC 4.74 (4.5-5.9) X10^6/uL Hgb 15.1 (13.5-17.5) g/dL Hct 43.8 (41-53) % MCV 92.4 (80-100) fL MCH 31.9 (26-34) PG MCHC 34.5 (30-36) % RDW 12.9 (11.6-14.8) % Plt Count 259 (150-400) X10^3/uL Neut % (Auto) 72.7 (50-75) % Lymph % (Auto) 13.8 L (25-40) % [place] % (Auto) 10.3 (3-14) % Eos % (Auto) 2.5 (2-4) % Baso % (Auto) 0.7 (0-2) % Neut # (Auto) 5600 (0267-1971) /uL Lymph # (Auto) 1100 (5522-2040) /uL [place] # (Auto) 800 (0-900) /uL Eos # (Auto) 200 (0-450) /uL Baso # (Auto) 100 (0-100) /uL PT 12.3 (9.4-12.5) SECONDS INR 1.1 (0.9-1.3) APTT 30 (25.1-36.5) SECONDS Sodium 138 (137-145) mmol/L Potassium 4.2 (3.4-5.1) mmol/L Chloride 102 (98-107) mmol/L Carbon Dioxide 27 (22-32) mmol/L BUN 16 (9-20) mg/dL Creatinine 0.99 (0.66-1.25) mg/dL Estimated GFR > 60 (>60) mL/min BUN/Creatinine Ratio 16.2 (6-22) Glucose 112 H (70-99) mg/dL Calcium 8.8 (8.4-10.2) mg/dL Magnesium 2.1 (1.6-2.3) mg/dL Total Bilirubin 2.0 H (0.2-1.3) mg/dL AST 27 (17-59) IU/L ALT 19 (<50) IU/L Alkaline Phosphatase 108 (38-126) U/L Total Creatine Kinase 78 (55-170) U/L Troponin I < 0.012 < 0.012 (0.01-0.034) ng/mL NT-Pro-B Natriuret Pep 619 H (<125) pg/mL Total Protein 8.3 H (6.3-8.2) g/dL Albumin 4.2 (3.5-5.0) g/dL Globulin 4.1 (1.7-4.1) g/dL Albumin/Globulin Ratio 1.0 (1.0-2.8) Lipase 52 (23-300) U/L Imaging Data Chest x-ray: My Impression: Independently reviewed chest x-ray, no acute findings Radiologist's Impression: Radiology report reviewed, no acute abnormality ECG Data Attestation: I personally reviewed and interpreted this ECG as follows: (Normal sinus rhythm at [address] segment changes left axis deviation, no significant change from 10 August.) MDM Narrative Medical decision making narrative: 69-year-old male presenting with chest tightness. He has had this for 1 week and he reports that this has been continuous and it is not altered by exertion. I considered but do not suspect cardiac ischemia. He has a history of DVT, this was provoked, he does not have leg swelling or cords he does not have shortness of breath he does not have tachycardia I considered but do not suspect pulmonary embolism. Bilirubin is elevated, I considered the possibility of cholecystitis or cholangitis, he does not have abdominal tenderness abdominal pain or nausea. We do recommend symptomatic treatment at present. For a not suspicious story, to risk factors and age has a heart score of 3 Discharge Plan Departure Patient Disposition: Home Clinical Impression: Chest pain in adult Activity Restrictions/Additional Instructions: Emergency department evaluation today is reassuring. I do not think that there is a dangerous cause for your current symptoms of chest tightness. I think it is safe to go home. I recommend you continue previous home medications. With the exception of I also recommend that you double your lansoprazole from 15 mg a day to 30 mg a day, this will be two capsules. If you are having increasing shortness of breath worsening pain fevers or other acute symptoms please return to the emergency department. Prescriptions: No Action lansoprazole 15 mg capsule,delayed release(DR/EC) 15 mg PO DAILY Qty: 90 3RF pravastatin 20 mg tablet 20 mg PO BEDTIME Qty: 90 3RF aspirin [Adult Aspirin Regimen] 81 mg tablet,delayed release (DR/EC) 81 mg PO DAILY acetaminophen [Tylenol] 325 mg Tablet 650 mg PO PRN PRN (Reason: Pain (Scale Score 1-3)) Referrals: Rickie Torre DO [Primary Care Provider, Family Practice] Stand Alone Forms: Patient Portal/API
[2024-11-17 11:56] LABS: Troponin I < 0.012 ng/mL (0.01-0.034)
== END 2024-11-17 12:06 | disposition home or self-care (01) ==
PROVIDERS: Emergency Provider Emergency Medicine; PCP Family Medicine
DX: R07.9 Chest pain, unspecified (principal)
CPT/HCPCS: 36415; 71045; 80053; 82550; 83690; 83735; 83880; 84484; 85025; 85610; 85730; 93005; 99284

== ENCOUNTER → 2024-11-20 10:54 | Outpatient (CLI) | payer OTHER, SELFPAY ==
[2024-11-20 11:32] LABS: Hematocrit 37.7 % (41-53); Hemoglobin 12.8 g/dL (13.5-17.5); Mean Corpuscular HGB Conc 34.1 % (30-36); Mean Corpuscular Hemoglobin 31.6 PG (26-34); Mean Corpuscular Volume 92.5 fL (80-100); Platelet Count 273 X10^3/uL (150-400)
[2024-11-20 11:50] LABS: Add Manual Diff / Slide Review YES
[2024-11-20 12:59] LABS: Eosinophils Percent Manual 6.0 % (2-4); Lymphocytes Percent Manual 29.0 % (25-45); Monocytes Percent Manual 8.0 % (2-11); Neutrophils Absolute Manual 4332 /uL (3000-5900); Segmented Neutrophils Percent 57.0 % (38-70); Total Cells Counted 100
[2024-11-20 13:02] LABS: Toxic Granulation Present
[2024-11-20 13:07] LABS: RBC Morphology Normal Morphology
[2024-11-20 13:25] LABS: Albumin 3.9 g/dL (3.5-5.0); HEMOLYSIS 24 (0-50)
[2024-11-20 18:45] LABS: Alanine Aminotransferase 22 IU/L (<50); Albumin Globulin Ratio 1.0 (1.0-2.8); Alkaline Phosphatase 128 U/L (38-126); Blood Urea Nitrogen 17 mg/dL (9-20); Calcium 9.0 mg/dL (8.4-10.2); Carbon Dioxide 23 mmol/L (22-32); Chloride 101 mmol/L (98-107); Estimated Glomerular Filt Rate > 60 mL/min (>60); Globulin 4.0 g/dL (1.7-4.1); Glucose 100 mg/dL (70-99); Potassium 5.1 mmol/L (3.4-5.1); Sodium 137 mmol/L (137-145); Total Protein 7.9 g/dL (6.3-8.2)
[2024-11-20 20:39] LABS: NT-proBNP (BNP-Adult 18+) 344 pg/mL (<125)
== END ==
PROVIDERS: PCP Family Medicine; Referring Provider Family Medicine; Visit Provider Family Medicine
DX: T75.3XXA Motion sickness, initial encounter (principal); R07.9 Chest pain, unspecified; R50.9 Fever, unspecified; I51.4 Myocarditis, unspecified; R79.89 Other specified abnormal findings of blood chemistry; B33.22 Viral myocarditis
CPT/HCPCS: 36415; 80053; 83880; 85007; 85025; 85379; 85651

== ENCOUNTER 2024-11-20 18:01 | Emergency (ER) | payer OTHER, SELFPAY ==
[2024-11-20 18:09] VITALS: BP 131/67; PULSE 91; RESP 16; TEMP 36.8; O2SAT 97; BMI 27.7
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
[2024-11-20 19:03] LABS: Alanine Aminotransferase 28 IU/L (<50); Albumin 4.1 g/dL (3.5-5.0); Albumin Globulin Ratio 1.0 (1.0-2.8); Alkaline Phosphatase 138 U/L (38-126); Blood Urea Nitrogen 17 mg/dL (9-20); Calcium 8.4 mg/dL (8.4-10.2); Carbon Dioxide 24 mmol/L (22-32); Chloride 101 mmol/L (98-107); Estimated Glomerular Filt Rate > 60 mL/min (>60); Globulin 4.2 g/dL (1.7-4.1); Glucose 96 mg/dL (70-99); Sodium 136 mmol/L (137-145); Total Protein 8.3 g/dL (6.3-8.2)
[2024-11-20 19:04] LABS: HEMOLYSIS 206 (0-50); Potassium 5.2 mmol/L (3.4-5.1)
--- NOTE | 2024-11-20 19:24 | DI.CT.S_ITS ---
PROCEDURE: CT ANGIO CHEST INDICATIONS: PE suspected based on D-dimer and symptoms TECHNIQUE: After the administration of intravenous contrast, 2 mm thick sections acquired from the pulmonary apices to the posterior costophrenic angles. 3-dimensional maximum intensity projection (MIP) coronal and sagittal reformats were then acquired through the thorax. For radiation dose reduction, the following was used: automated exposure control, adjustment of mA and/or kV according to patient size. COMPARISON: [facility], CT, CT ANGIO CHEST, 07/19/2020, 15:30. FINDINGS: Image quality: Diagnostic. Pulmonary arteries: Pulmonary arteries are normal in size, and demonstrate no intraluminal filling defects to suggest central pulmonary embolism. Lower Neck: No enlarged lymph nodes. Thyroid: No thyroid nodules which require sonographic follow up, per consensus guidelines. Axillae: No enlarged lymph nodes. Chest Wall: Unremarkable. Bones: Old right-sided rib fractures. Degenerative changes of the spine. Lungs and Pleura: No pneumothorax or pleural effusions. No consolidation or suspicious nodules. Heart: Heart size is normal. No pericardial effusion. Thoracic Vessels: No aortic aneurysm. Atherosclerotic calcifications. Mediastinum and Sara: Prominent mediastinal and bilateral hilar lymph nodes. Esophagus: No wall thickening. Small hiatal hernia. Upper Abdomen: Visualized upper abdomen solid organs and bowel loops appear normal. IMPRESSION: No pulmonary embolus. No acute cardiopulmonary process. Prominent mediastinal and hilar lymph nodes which may be reactive. Similar appearance compared to prior. Dictated by: Marcell Nicholson M.D. on 11/20/2024 at 20:38 Approved by: Marcell Nicholson M.D. on 11/20/2024 at 20:42
[2024-11-20 19:57] LABS: Thyroid Stimulating Hormone 2.30 uIU/mL (0.47-4.68)
== END 2024-11-20 21:02 | disposition home or self-care (01) ==
PROVIDERS: Emergency Provider Emergency Medicine; PCP Family Medicine
DX: R53.83 Other fatigue (principal); R63.4 Abnormal weight loss; R61 Generalized hyperhidrosis
CPT/HCPCS: 36415; 71275; 80053; 83880; 84443; 85007; 85025; 85379; 85651; 99281; 99284; Q9967